=== PATIENT | female | born 1980 | race Caucasian/White ===

== ENCOUNTER 2016-12-08 08:51 | Outpatient (CLI) ==
[2016-01-28 08:05] VITALS: BMI 19.1
--- NOTE | 2016-12-08 10:52 | MAMMO ---
EXAM: Digital screening mammogram HISTORY: Screening COMPARISON: None FINDINGS: Digital MLO and CC views of the right and left breast were performed. The breast tissue is heterogeneously dense, which could obscure small masses. There is no evidence for mass, asymmetr y, distortion, or suspicious calcifications in either breast. IMPRESSION: 1. No evidence of malignancy in the right or left breast. 2. Annual screening mammogram is recommended in one year. BIRADS category 1, negative examination
== END 2016-12-08 08:52 | disposition home or self-care (01) ==
LOC: RAD 08:51
PROVIDERS: ATTEND Advanced Practice Midwife
DX: Z12.31 Encounter for screening mammogram for malignant neoplasm of breast (principal); Z80.3 Family history of malignant neoplasm of breast